=== PATIENT | male | born 1995 | race Caucasian/White ===

== ENCOUNTER 2018-04-15 16:18 | Emergency (ER) | payer OTHER | END 2018-04-15 17:41 | disposition home or self-care (01) | LOC: M ED 16:18 | DX: Z04.1 Encounter for examination and observation following transport accident (principal) | CPT/HCPCS: 99283 ==

== ENCOUNTER 2019-02-18 20:26 | Emergency (ER) | payer OTHER ==
[~2019-02-18] VITALS: Ht 167.6 cm; Wt 70.9 kg
[2019-02-18] MEDS ORDERED: IBUP200T45 PO (21:20)
[2019-02-18 22:40] LABS: INFLUENZA A AMPLIFICATION NEGATIVE (NEGATIVE); INFLUENZA B AMPLIFICATION NEGATIVE (NEGATIVE)
[2019-02-18 23:55] VITALS: BP 117/65
== END 2019-02-18 23:56 | disposition home or self-care (01) ==
LOC: M ED 20:26
DX: J06.9 Acute upper respiratory infection, unspecified (principal); Z88.0 Allergy status to penicillin

== ENCOUNTER 2019-02-23 09:38 | Emergency (ER) | payer OTHER ==
[~2019-02-23] VITALS: Ht 167.6 cm; Wt 68.8 kg
[~2019-02-23 09:38] MED LIST: IBUP200T45 PO
--- NOTE | 2019-02-23 11:23 | REP ---
REASON FOR EXAM: Left-sided pain. PRIORS: None. The right testicle measures 4.3 x 2.4 x 3.5 cm and the left testicle measures 4.4 x 2.3 x 3 cm. On the right, there is an incidental 3 mm size spermatocele. The right testicular parenchymal and vascular pattern is within normal limits. The right testicular RI is 0.62. There is no right-sided hydrocele. On the left, there is an incidental 4 mm size spermatocele. The left testicular parenchymal echo pattern and vascular pattern is within normal limits. The left testicular RI is 0.62. In the upper pole of the left testicle, there is a 1 mm sized calcification, which is incidental. There is a left-sided hydrocele. There is no evidence of a varicocele on either side. Tcec-[id number] imaging shows the testicular parenchymal echo pattern to be symmetric bilaterally. IMPRESSION: 1. There is no evidence of a solid mass or torsion. 2. Bilateral incidental spermatocele. 3. There is a left-sided hydrocele. Consider urologic consultation. Electronically Signed by Brain Walters DO 02/23/2019 11:52 A
[2019-02-23 11:47] LABS: CHLAMYDIA DNA AMPLIFICATION NEGATIVE (NEGATIVE); GC DNA AMPLIFICATION NEGATIVE (NEGATIVE)
[2019-02-23 11:58] VITALS: BP 133/72
--- NOTE | 2019-02-25 12:19 | ED PDOC ---
Post-Departure Follow-Up ft obdulio fp faxed formal report of scrotal us for fu Toy Kwon MD Feb 25, 2019 12:19
== END 2019-02-23 12:29 | disposition home or self-care (01) ==
LOC: M ED 09:38
DX: N43.3 Hydrocele, unspecified (principal); N43.40 Spermatocele of epididymis, unspecified; M54.5 Low back pain; G89.29 Other chronic pain; Z91.040 Latex allergy status

== ENCOUNTER 2019-02-24 21:14 | Emergency (ER) | payer OTHER ==
[~2019-02-24] VITALS: Ht 167.6 cm; Wt 70.9 kg
[2019-02-24 21:14] VITALS: BP 138/79
[2019-02-24 23:21] LABS: BASO # 0.1 10^3/uL (0.0-0.2); BASO % 0.9 % (0.0-1.0); EOS # 0.3 10^3/uL (0.0-0.5); EOS % 3.3 % (0.0-3.0); HEMATOCRIT 43.3 % (42.0-52.0); HEMOGLOBIN 14.9 g/dl (13.5-17.5); LYMPH # 3.4 10^3/uL (1.5-5.0); LYMPH % 41.8 % (24.0-44.0); MEAN CORPUSCULAR HEMOGLOBIN 29.9 pg (27.0-33.0); MEAN CORPUSCULAR HGB CONC 34.4 g/dl (32.0-36.5); MEAN CORPUSCULAR VOLUME 86.9 fl (80.0-96.0); MONO # 0.5 10^3/uL (0.0-0.8); MONO % 6.6 % (0.0-5.0); NEUTROPHILS # 3.6 10^3/uL (1.5-8.5); PLATELET COUNT, AUTOMATED 238 10^3/uL (150-450); RED BLOOD COUNT 4.98 10^6/uL (4.30-6.10); WHITE BLOOD COUNT 8.2 10^3/uL (4.0-10.0)
[2019-02-24 23:49] LABS: ALBUMIN 3.9 GM/DL (3.2-5.2); ALT/SGPT 116 U/L (12-78); BILIRUBIN,DIRECT 0.2 MG/DL (0.0-0.2); BILIRUBIN,TOTAL 0.6 MG/DL (0.2-1.0); BLOOD UREA NITROGEN 15 MG/DL (7-18); CALCIUM LEVEL 8.7 MG/DL (8.5-10.1); CARBON DIOXIDE LEVEL 32 MEQ/L (21-32); CHLORIDE LEVEL 105 MEQ/L (98-107); CREATININE FOR GFR 0.89 MG/DL (0.70-1.30); GLOMERULAR FILTRATION RATE > 60.0 (>60); GLUCOSE, FASTING 90 MG/DL (70-100); LIPASE 105 U/L (73-393); POTASSIUM SERUM 4.5 MEQ/L (3.5-5.1); SODIUM LEVEL 140 MEQ/L (136-145); TOTAL PROTEIN 7.1 GM/DL (6.4-8.2)
== END 2019-02-25 00:32 | disposition home or self-care (01) ==
LOC: M ED 21:14
DX: N43.3 Hydrocele, unspecified (principal); Z91.040 Latex allergy status